=== PATIENT | male | born 1995 | race Caucasian/White ===

== ENCOUNTER 2020-07-29 10:17 | Emergency (ER) | payer OTHER ==
[~2020-07-29] VITALS: Ht 170.2 cm; Wt 86.4 kg
[2020-07-29] MEDS ORDERED: famotidine/PF 10 mg/ml inj IV ONE (10:35)
[2020-07-29] MEDS ORDERED: normal saline 1000ML IV soln IVB ONE (10:35)
[2020-07-29] MEDS ORDERED: pantoprazole 40 MG vial IV ONE (10:35)
[2020-07-29] MEDS ORDERED: ondansetron/PF 4mg/2ml inj IV ONE (10:35)
[2020-07-29 14:21] VITALS: BP 129/92
== END 2020-07-29 14:39 | disposition home or self-care (01) ==
LOC: ER 10:17
DX: K91.841 Postprocedural hemorrhage of a digestive system organ or structure following other procedure (principal); R58 Hemorrhage, not elsewhere classified; R11.0 Nausea; Z90.89 Acquired absence of other organs
CPT/HCPCS: 96361; 96374; 96375; 99284; C9113; J2405; J3490; J7030